=== PATIENT | female | born 1950 | race Caucasian/White ===

== ENCOUNTER 2016-12-27 18:14 | Emergency (ER) | payer OTHER ==
[~2016-12-27] VITALS: Wt 61.0 kg
[~2016-12-27 18:14] MED LIST: ATEN-51 PO; LISI20TA11 PO; METF500T4 PO
[2016-12-27] MEDS ORDERED: IBUPROFEN 600 MG TAB PO ONE (22:00)
--- NOTE | 2016-12-27 23:24 | RADRPT ---
PROCEDURE: Chest x-ray. CLINICAL INDICATION: Shortness of breath, cough for 1 week. TECHNIQUE: PA view of the chest. COMPARISON: None. FINDINGS: There is 1.7 cm opacity in the left lung field, adjacent to the left heart border. A 1.0 cm opacity projects over the right lung base. The cardiac silhouette is enlarged. There are aortic calcificat ions. No pleural effusion is seen. There is no pneumothorax. IMPRESSION: 1. 1.7 cm opacity in the left lung field, adjacent to the left heart border, and a 1.0 cm opacity p rojecting over the right lung base, nonspecific. Further evaluation with CT is recommended. 2. Enlarged cardiac silhouette and aortic atherosclerosis. RPTAT: HTAR .Brad Mora MD, Date Time Electronically viewed and signed by .Brad Mora MD, MD on 12/27/2016 23:24 .R/
--- NOTE | 2016-12-28 02:48 | RADRPT ---
PROCEDURE: CT Chest without contrast. CLINICAL INDICATION: Cough and fever, abnormal chest x-ray TECHNIQUE: CT scan of the chest without contrast was performed on a multidetector high-resolution CT scanner. Coronal and sagittal reformatted images were obtained from the axial source images. The total exam CTDI equals 8.64 mGy and the total exam DLP equals 316.63 mGy-cm. One or more the following dose reduction techniques were utilized: Automated exposure control, adjus tment of the mA/ or kV according to patient's size, or use of iterative reconstruction technique. COMPARISON: Chest x-ray of 12/27/2016 FINDINGS: Cardiomegaly. Calcification in thoracoabdominal aorta and great vessels. Less than 1 cm short-axis m ediastinal lymph nodes are seen. Coronary artery calcification. The patient is status post cholecy stectomy. No adrenal abnormality is seen. No pleural effusion is seen. Small amount of pericardia l fluid is seen superiorly. There is approximate 4 x 1.5 cm area of consolidation with air bronchog isaiah in the lung upper lung lobe anterior segment which could represent pneumonia in this patient wit h history of cough and fever. Approximate 1.6 x 1.7 cm area of irregularly marginated apparent cons olidation in the apical region of the left upper lobe could be secondary to bronchopneumonia. Linea r atelectasis/fibrosis in lingula and left lower lobe. Patchy "tree in bud opacities" in right lowe r lung lobe suggestive of infectious/inflammatory bronchiolitis. Patchy densities in right lower cata ng lobe posteriorly, medially, and superiorly and anteriorly with the largest posteriorly measuring approximately 1.5 x 1.5 posteriorly cm which may be inflammatory. Degenerative changes in thoracic spine. Appearance of mild curvature of thoracic spine with convexity to right. IMPRESSION: Bilateral patchy areas of lung consolidation and infiltrate noted above which could be secondary to bronchopneumonia. Follow-up after course of therapy is recommended to evaluate for the possibility of underlying neoplasm. Cardiomegaly. Atherosclerosis. Please see above. RPTAT: HJES .Tyrone Lacey MD, MD Date Time Electronically viewed and signed by .Tyrone Lacey MD, MD on 12/28/2016 02:47 .S/
[2016-12-28] MEDS ORDERED: LIDOCAINE 1% (MDV) 20 ML INJ IM ONE (03:00)
[2016-12-28] MEDS ORDERED: IBUP-1542 PO (03:00)
[2016-12-28] MEDS ORDERED: AZIT250T94 PO (03:00)
[2016-12-28] MEDS ORDERED: CEFTRIAXONE 1 GM INJ IM ONE (03:00)
[2016-12-28] MEDS ORDERED: GUAI-95 PO (03:00)
[2016-12-28 03:46] VITALS: BP 161/85; PULSE 71; RESP 17; TEMP 99.1
--- NOTE | 2016-12-28 03:48 | ERD ---
ER Documentation Chief Complaint Date/Time DATE: 12/28/16 TIME: 03:38 Chief Complaint cough/sore throat x 1 week HPI This is a 66-year-old female who presents to the ED with productive cough and sore throat 1 week. Patient has greenish sputum and also reports subjective fever for 3 days. Patient's family are present in the same symptoms. Denies any foreign travel. Patient history of diabetes and hypertension. Patient did not take any medications for symptom relief. Denies any headache, shortness of breath, chest pain, nausea, vomiting, diarrhea or dysuria. ROS All systems reviewed and are negative except as per history of present illness. Medications Home Meds Active Scripts Guaifenesin/Dextromethorphan (Diabetic Tussin DM*) 118 Ml Liquid, 10 ML PO Q4H Y for COUGH, #1 BOTTLE Prov:SARITA ANDERSON 12/28/16 Ibuprofen* (Motrin*) 600 Mg Tab, 600 MG PO Q6H Y for PAIN AND OR ELEVATED TEMP, #30 TAB Prov:SARITA ANDERSON 12/28/16 Azithromycin* (Zithromax*) 250 Mg Tablet, 250 MG PO .ZPACK DIRECTED, #6 TAB TAKE 500 MG (2 TABS) THE FIRST DAY THEN 250 MG (1 TAB) DAYS 2-5 Prov:SARITA ANDERSON 12/28/16 Metformin* (Glucophage*) 500 Mg Tab, 500 MG PO DAILY, #20 TAB Prov:JULEE MONTEIRO DO 03/19/16 Lisinopril* (Lisinopril*) 20 Mg Tablet, 20 MG PO DAILY, #30 TAB Prov:JULEE MONTEIRO DO 03/19/16 Atenolol* (Atenolol*) 25 Mg Tablet, 25 MG PO DAILY, #30 TAB Prov:JULEE MONTEIRO DO 03/19/16 Reported Medications Lisinopril* (Lisinopril*) 20 Mg Tablet, 20 MG PO DAILY, #30 TAB 03/19/16 Metformin* (Glucophage*) 500 Mg Tab, 500 MG PO WITH BREAKFAST DINNE, #30 TAB 03/19/16 Atenolol* (Atenolol*) 25 Mg Tablet, 25 MG PO DAILY, #30 TAB 03/19/16 Allergies Allergies: Coded Allergies: No Known Allergies (Verified Allergy, Unknown, 12/27/16) PMhx/Soc History of Surgery: Yes (APPY, GB) Anesthesia Reaction: No Hx Cardiac Disorders: Yes (HIGH CHOL/HTN "INFLAMED HEART", ARTHRITIS) Hx Psychiatric Problems: No Hx Miscellaneous Medical Probl: Yes (DM2) Hx Alcohol Use: No Hx Substance Use: No Hx Tobacco Use: No Physical Exam Vitals Vital Signs Date Time Temp Pulse Resp B/P Pulse Ox O2 Delivery O2 Flow Rate FiO2 12/27/16 18:26 100.0 81 20 179/94 97 Physical Exam Physical Exam CONST: Well-developed, well-nourished, in no acute distress. Nontoxic in appearance. HEENT: Atraumatic. Normal conjunctiva. EOM intact. TM intact. External ear is normal. Clear oropharnyx without erythema. No uvular deviation. Moist mucous membranes. Supple neck. No meningismus. No submandibular induration. RESP: Clear to auscultation bilaterally. No wheezing. CARDIO: Regular rate and rhythm, no murmurs. ABD: Soft, non tender, non distended. Normal bowel sounds. No McBurney's point tenderness. No guarding or rigidity. No peritoneal signs. SKIN: No petechiae or rashes. BACK: No midline or flank tenderness. EXT: No cyanosis or edema. Distal pulses equal and bilateral. NEURO: Awake and alert, appropriate for age. 5/5 strength in all extremities. Normal speech. Steady gait. Results 24 hrs Current Medications Medications (Trade) Dose Ordered Sig/Siri Route PRN Reason Start Time Stop Time Status Last Admin Dose Admin Ibuprofen (Motrin) 600 mg ONCE ONCE PO 12/27/16 22:00 12/27/16 22:01 DC 12/27/16 21:47 Ceftriaxone Sodium (Rocephin) 1 gm ONCE ONCE IM 12/28/16 03:00 12/28/16 03:01 DC 12/28/16 03:22 Lidocaine (Xylocaine 1% (Mdv) 20 ml) 20 ml ONCE ONCE IM 12/28/16 03:00 12/28/16 03:01 DC 12/28/16 03:23 PROCEDURE: Chest x-ray. CLINICAL INDICATION: Shortness of breath, cough for 1 week. TECHNIQUE: PA view of the chest. COMPARISON: None. FINDINGS: There is 1.7 cm opacity in the left lung field, adjacent to the left heart border. A 1.0 cm opacity projects over the right lung base. The cardiac silhouette is enlarged. There are aortic calcifications. No pleural effusion is seen. There is no pneumothorax. IMPRESSION: 1. 1.7 cm opacity in the left lung field, adjacent to the left heart border, and a 1.0 cm opacity projecting over the right lung base, nonspecific. Further evaluation with CT is recommended. 2. Enlarged cardiac silhouette and aortic atherosclerosis. PROCEDURE: CT Chest without contrast. CLINICAL INDICATION: Cough and fever, abnormal chest x-ray TECHNIQUE: CT scan of the chest without contrast was performed on a multidetector high-resolution CT scanner. Coronal and sagittal reformatted images were obtained from the axial source images. The total exam CTDI equals 8.64 mGy and the total exam DLP equals 316.63 mGy-cm. One or more the following dose reduction techniques were utilized: Automated exposure control, adjustment of the mA/ or kV according to patient's size, or use of iterative reconstruction technique. COMPARISON: Chest x-ray of 12/27/2016 FINDINGS: Cardiomegaly. Calcification in thoracoabdominal aorta and great vessels. Less than 1 cm short-axis mediastinal lymph nodes are seen. Coronary artery calcification. The patient is status post cholecystectomy. No adrenal abnormality is seen. No pleural effusion is seen. Small amount of pericardial fluid is seen superiorly. There is approximate 4 x 1.5 cm area of consolidation with air bronchogram in the lung upper lung lobe anterior segment which could represent pneumonia in this patient with history of cough and fever. Approximate 1.6 x 1.7 cm area of irregularly marginated apparent consolidation in the apical region of the left upper lobe could be secondary to bronchopneumonia. Linear atelectasis/fibrosis in lingula and left lower lobe. Patchy "tree in bud opacities" in right lower lung lobe suggestive of infectious /inflammatory bronchiolitis. Patchy densities in right lower lung lobe posteriorly, medially, and superiorly and anteriorly with the largest posteriorly measuring approximately 1.5 x 1.5 posteriorly cm which may be inflammatory. Degenerative changes in thoracic spine. Appearance of mild curvature of thoracic spine with convexity to right. IMPRESSION: Bilateral patchy areas of lung consolidation and infiltrate noted above which could be secondary to bronchopneumonia. Follow-up after course of therapy is recommended to evaluate for the possibility of underlying neoplasm. Cardiomegaly. Atherosclerosis. Please see above. RPTAT: HJES .Tyrone Lacey MD, MD Date Time Electronically viewed and signed by .Tyrone Lacey MD, on 12/28/2016 02:47 Procedures/[facility] EMERGENCY DEPARTMENT COURSE/MEDICAL DECISION MAKING This is a 66-year-old female who comes to the emergency room secondary to complaints of productive cough, sore throat and subjective fever.. The patient was given ibuprofen in the department. On re-evaluation, the patient 's symptoms improved. Chest x-ray was ordered and was interpreted by radiologist. Results shows a 1.7 cm opacity in the left lung field and a 1 cm opacity over the right lung base. Case was presented to Dr. Coronado and CT of the chest was ordered. CT of the chest was done and was interpreted by a radiologist. Results shows bilateral patchy areas of lung consolidation and infiltrate bilaterally. Given the CT of the chest results, Rocephin 1 g IM will be given during the ED course. My primary diagnosis is pneumonia. Secondary diagnosis is cough Differential diagnoses considered but not limited to pneumonia, bronchitis, influenza, upper respiratory infection, asthma, pharyngitis, peritonsillar abscess, otitis media, otitis externa. Pt is hemodynamically stable upon reassessment. There are no new complaints during the ED course. The patient was discharged for outpatient management with a prescription for azithromycin, ibuprofen and Robitussin-DM. The patient was advised to followup with their PMD in 1-2 days and to return to the Emergency Department if there are any new or worsening symptoms. The patient understood and agreed with the diagnosis, treatment and plan. Patient is stable for discharge at this time. Departure Diagnosis: Primary Impression: Pneumonia Pneumonia type: due to unspecified organism Laterality: bilateral Lung location: upper lobe of lung Qualified Code: J18.9 - Pneumonia of both upper lobes due to infectious organism Additional Impression: Cough Condition: Stable Patient Instructions: Pneumonia (Adult) Referrals: [facility] Usted se martínez hecho un examen mdico de control que le indica que no est en angelique condicin que requiera tratamiento urgente en el Departamento de Emergencia. Un estudio ms profundo y el tratamiento de friedman condicin pueden esperar sin ningn riesgo hasta que usted sea atendida/o en el consultorio de friedman mdico o angelique cl maycol. Es responsabilidad suya arreglar angelique lissett para el seguimiento del sarahy. MANEJO DE CONDICIONES NO URGENTES EN EL FUTURO 1) Si usted tiene un mdico de atencin primaria: Usted debera llamar a friedman mdico de atencin primaria antes de venir al departamento de emergencia. Despus de las horas de consultorio, friedman doctor o friedman asociado/a est disponible por telfono. El mdico o enfermero de vern en el servicio telefnico puede asesorarle por brenda medio para atender el problema, o sarahy contrario se puede programar angelique lissett. 2) Si usted no tiene un mdico de atencin primaria: Llame al mdico o clnica de referencia que aparece abajo jalyn las horas de consultorio para hacer angelique lissett para que le vean. CLINICAS: [facility] [phone] [facility] [phone] [address] [facility]. [facility] [phone] [address] [facility]. [place] [id number] [phone] [facility] [place] [address] [phone] [facility]. [phone] [facility] () Usted se martínez hecho un examen mdico de control que le indica que no est en angelique condicin que requiera tratamiento urgente en el Departamento de Emergencia. Un estudio ms profundo y el tratamiento de friedman condicin pueden esperar sin ningn riesgo hasta que usted sea atendida/o en el consultorio de friedman mdico o angelique cl maycol. Es responsabilidad suya arreglar angelique lissett para el seguimiento del sarahy. MANEJO DE CONDICIONES NO URGENTES EN EL FUTURO 1) Si usted tiene un mdico de atencin primaria: Usted debera llamar a friedman mdico de atencin primaria antes de venir al departamento de emergencia. Despus de las horas de consultorio, friedman doctor o friedman asociado/a est disponible por telfono. El mdico o enfermero de vern en el servicio telefnico puede asesorarle por brenda medio para atender el problema, o sarahy contrario se puede programar angelique lissett. 2) Si usted no tiene un mdico de atencin primaria: Llame al mdico o condado institucions de referencia que aparece abajo jalyn las horas de consultorio para hacer angelique lissett para que le vean. SI USTED NO PUEDE PAGAR PARA CARLO UN MEDICO puede ir a: [facility] [address] [place] [address] [facility] [address] [place] [address] [facility] [place] [facility] [address] [place] [address] [facility] [address] [place], [place] [id number] Additional Instructions: Llame a friedman mdico de atencin primaria maana para hacer angelique lissett jalyn los pr ximos burrell 1-2. Volver al Departamento de la emergencia inmediatamente si tiene cualquier s ntoma nuevo o que empeora. Platinum todos los medicamentos leida lo indique. SARITA ANDERSON Dec 28, 2016 03:48
[2016-12-29] MEDS ORDERED: AZIT250T94 PO (15:56)
== END 2016-12-28 03:47 | disposition home or self-care (01) ==
LOC: FTE 18:14
DX: J18.9 Pneumonia, unspecified organism (principal); E11.9 Type 2 diabetes mellitus without complications; I10 Essential (primary) hypertension; Z79.84 Long term (current) use of oral hypoglycemic drugs
CPT/HCPCS: 71010; 71250; J0696; Z7610; 96372

== ENCOUNTER 2016-12-29 12:22 | Emergency (ER) | payer OTHER ==
[~2016-12-29] VITALS: Ht 149.9 cm; Wt 57.5 kg
[~2016-12-29 12:22] MED LIST changes: +AZIT250T94 PO; +GUAI-95 PO; +IBUP-1542 PO
[2016-12-29 13:03] VITALS: Ht 149.9 cm; Wt 57.5 kg
[2016-12-29] MEDS ORDERED: AZIT250T94 PO (15:56)
[2016-12-29 16:04] VITALS: BP 168/81; PULSE 68; RESP 18
--- NOTE | 2016-12-29 16:49 | ERD ---
ER Documentation Chief Complaint Date/Time DATE: 12/29/16 TIME: 16:44 Chief Complaint PT HERE FOR FOLLOW UP COUGH HPI 66-year-old female patient with a past medical history of diabetes, hypertension , hernia presents to the ED complaining of a productive cough, sore throat that started 1 week ago. Patient states that she was instructed to come here in the ED to follow-up for her pneumonia. States that she took all of her a Z-Shaw, took half of the pack earlier in the morning yesterday and the rest of it last night. States that her cough is improving from taking the diabetic tussin. Denies any fever, chills, abdominal pain, nausea, vomiting, diarrhea. States that she takes metformin, amlodipine, atenolol, Nitrostat, HCTZ, Xarelto, lisinopril. Reports that she has had a previous cholecystectomy and appendectomy. ROS All systems reviewed and are negative except as per history of present illness. Medications Home Meds Active Scripts Azithromycin* (Zithromax*) 250 Mg Tablet, 250 MG PO DAILY for 3 Days, TAB Prov:SEAN HOWLEL PA-C 12/29/16 Guaifenesin/Dextromethorphan (Diabetic Tussin DM*) 118 Ml Liquid, 10 ML PO Q4H Y for COUGH, #1 BOTTLE Prov:SARITA ANDERSON 12/28/16 Ibuprofen* (Motrin*) 600 Mg Tab, 600 MG PO Q6H Y for PAIN AND OR ELEVATED TEMP, #30 TAB Prov:SARITA ANDERSON 12/28/16 Azithromycin* (Zithromax*) 250 Mg Tablet, 250 MG PO .CorinaPACK DIRECTED, #6 TAB TAKE 500 MG (2 TABS) THE FIRST DAY THEN 250 MG (1 TAB) DAYS 2-5 Prov:SARITA ANDERSON 12/28/16 Metformin* (Glucophage*) 500 Mg Tab, 500 MG PO DAILY, #20 TAB Prov:JULEE MONTEIRO DO 03/19/16 Lisinopril* (Lisinopril*) 20 Mg Tablet, 20 MG PO DAILY, #30 TAB Prov:JULEE MONTEIRO DO 03/19/16 Atenolol* (Atenolol*) 25 Mg Tablet, 25 MG PO DAILY, #30 TAB Prov:JULEE MONTEIRO DO 03/19/16 Reported Medications Lisinopril* (Lisinopril*) 20 Mg Tablet, 20 MG PO DAILY, #30 TAB 03/19/16 Metformin* (Glucophage*) 500 Mg Tab, 500 MG PO WITH BREAKFAST DINNE, #30 TAB 03/19/16 Atenolol* (Atenolol*) 25 Mg Tablet, 25 MG PO DAILY, #30 TAB 03/19/16 Allergies Allergies: Coded Allergies: No Known Allergies (Verified Allergy, Unknown, 12/27/16) PMhx/Soc History of Surgery: Yes (APPY, GB) Anesthesia Reaction: No Hx Cardiac Disorders: Yes (HIGH CHOL/HTN "INFLAMED HEART", ARTHRITIS) Hx Psychiatric Problems: No Hx Miscellaneous Medical Probl: Yes (DM2) Hx Alcohol Use: No Hx Substance Use: No Hx Tobacco Use: No Physical Exam Vitals Vital Signs Date Time Temp Pulse Resp B/P Pulse Ox O2 Delivery O2 Flow Rate FiO2 12/29/16 16:04 68 18 168/81 99 Room Air 12/29/16 13:03 98.6 55 18 185/90 96 Physical Exam Const: [id number], well-nourished. In no acute distress. Head: Atraumatic, normocephalic Eyes: Normal Conjunctiva without injection. No purulent discharge. PERRL. EOMI ENT: Normal external ear. Ear canal without erythema. Tympanic membrane pearly rabago without effusion or bulging. Nasal canal clear with normal turbinates. Moist oropharynx without tonsillar exudates. Non-erythematous pharynx. Uvula midline. No drooling. No trismus. Neck: Full range of motion. No meningismus. No cervical lymphadenopathy. Resp: Clear to auscultation bilaterally. No wheezing, rhonchi, rales, or crackles. No accessory muscle use. No retractions. Cardio: Regular rate and rhythm. No murmurs, rubs or gallops. Abd: Soft, non tender, non distended. Normal bowel sounds. No palpable masses. No rebound tenderness. No guarding. Skin: No petechiae or rashes Back: No midline tenderness. No CVA tenderness. Ext: No cyanosis, or edema. Neur: Awake and alert. Psych: Normal Mood and Affect Procedures/MDM This is a 66-year-old female patient with no significant past medical history presents to the ED for follow-up care for her diagnosed pneumonia yesterday. Patient's blood pressure was noted to be 185/90. Patient's blood pressure was elevated (>120/80) but appears stable without evidence of hypertension emergency or urgency. The patient was counseled about the risks of hypertension and urged to pursue outpatient monitoring and therapy within a week with their primary care physician. Patient reports that she took 1 of her hypertensive medications and has 2 other medications to take tonight. I strictly instructed her to follow-up with her primary care physician for further care and treatment of her hypertension. Patient is not in respiratory distress. Patient speaking full sentences. Patient stated that her cough is improving. Since patient completed her Z-Shaw in 1 day, this case was discussed with my supervising physician, Dr. Nicholas. Dr. Nicholas recommended patient to take 250 mg once daily for the next 3 days, essentially extending patient's treatment with Zithromax. Patient was seen here yesterday and was diagnosed with a bilateral patchy area of lung consolidation and infiltrates secondary to bronchopneumonia. Patient's physical exam include lungs which were clear to auscultation and a normal pulse oximetry. There is a low suspicion for pneumothorax, mononucleosis, pulmonary embolism, epiglottitis, CHF, atypical ID , otitis media, otitis externa, viral/strep pharyngitis, sinusitis, peritonsillar abscess, mastoiditis, retropharyngeal abscess, meningitis, sepsis , acute abdomen or other emergent conditions. Discharge medications: Zithromax 250 once daily for 3 days Patient was instructed to return to the ED for any new or worsening symptoms. They should otherwise follow up with the primary care provider within 1-2 days. The patient's questions were answered at the time of discharge. Patient understood and agreed with discharge management. Departure Diagnosis: Primary Impression: Pneumonia Pneumonia type: due to unspecified organism Laterality: unspecified laterality Lung location: unspecified part of lung Qualified Code: J18.9 - Pneumonia due to infectious organism, unspecified laterality, unspecified part of lung Condition: Stable Patient Instructions: Pneumonia in Children Referrals: [facility] Usted se martínez hecho un examen mdico de control que le indica que no est en angelique condicin que requiera tratamiento urgente en el Departamento de Emergencia. Un estudio ms profundo y el tratamiento de friedman condicin pueden esperar sin ningn riesgo hasta que usted sea atendida/o en el consultorio de friedman mdico o angelique cl maycol. Es responsabilidad suya arreglar angelique tod para el seguimiento del sarahy. MANEJO DE CONDICIONES NO URGENTES EN EL FUTURO 1) Si usted tiene un mdico de atencin primaria: Usted debera llamar a friedman mdico de atencin primaria antes de venir al departamento de emergencia. Despus de las horas de consultorio, friedman doctor o friedman asociado/a est disponible por telfono. El mdico o enfermero de vern en el servicio telefnico puede asesorarle por brenda medio para atender el problema, o sarahy contrario se puede programar angelique tod. 2) Si usted no tiene un mdico de atencin primaria: Llame al mdico o clnica de referencia que aparece abajo jalyn las horas de consultorio para hacer angelique tod para que le vean. CLINICAS: [facility] [phone] [address] [facility] [phone] [address] [facility]. [facility] [phone] [address] [facility]. [facility] [phone] [address] [facility] [place] [id number] [phone] [facility]. [phone] [facility] () Usted se martínez hecho un examen mdico de control que le indica que no est en angelique condicin que requiera tratamiento urgente en el Departamento de Emergencia. Un estudio ms profundo y el tratamiento de friedman condicin pueden esperar sin ningn riesgo hasta que usted sea atendida/o en el consultorio de friedman mdico o angeliuqe cl maycol. Es responsabilidad suya arreglar angelique tod para el seguimiento del sarahy. MANEJO DE CONDICIONES NO URGENTES EN EL FUTURO 1) Si usted tiene un mdico de atencin primaria: Usted debera llamar a friedman mdico de atencin primaria antes de venir al departamento de emergencia. Despus de las horas de consultorio, friedman doctor o friedman asociado/a est disponible por telfono. El mdico o enfermero de vern en el servicio telefnico puede asesorarle por brenda medio para atender el problema, o sarahy contrario se puede programar angelique tod. 2) Si usted no tiene un mdico de atencin primaria: Llame al mdico o condado institucions de referencia que aparece abajo jalyn las horas de consultorio para hacer angelique tod para que le vean. SI USTED NO PUEDE PAGAR PARA CARLO UN MEDICO puede ir a: [facility] [address] [place] [address] [facility] [address] [place] [address] [facility] [address] [place] [address] [facility] [address] [place], [place] [phone] Additional Instructions: Llame al doctor MAANA y rasheeda angelique TOD PARA DENTRO DE 1-2 HICKEY.Dgale a la secretaria que nosotros le instruimos hacer esta tod.Avise o llame si friedman condicin se empeora antes de la tod. Regresa aqui si peor o no mejor. SEAN HOWELL PA-C Dec 29, 2016 16:49 SEAN HOWELL PA-C Dec 29, 2016 16:49
== END 2016-12-29 16:08 | disposition home or self-care (01) ==
LOC: E/R 12:22 → FTE 16:08
DX: J18.9 Pneumonia, unspecified organism (principal); I10 Essential (primary) hypertension; E11.9 Type 2 diabetes mellitus without complications; Z79.84 Long term (current) use of oral hypoglycemic drugs
CPT/HCPCS: 99283